=== PATIENT | female | born 1975 | race Caucasian/White ===

== ENCOUNTER 2017-12-08 17:02 | Emergency (ER) | payer OTHER ==
[2017-12-08 17:11] VITALS: BP 122/77; PULSE 82; TEMP 98.7; BMI 27.1
--- NOTE | 2017-12-08 17:27 | PDOC ---
Rapid Medical Evaluation Chief Complaint: Head/Neck problem Time Seen by Provider: 12/08/17 17:15 Medical Evaluation: Allergies Allergy/AdvReac Type Severity Reaction Status Date / Time acetaminophen Allergy Verified 12/08/17 17:08 [From Excedrin Sinus Headache] aspirin Allergy Verified 12/08/17 17:08 ibuprofen [From Motrin] Allergy Verified 12/08/17 17:08 meloxicam Allergy Verified 12/08/17 17:08 phenylephrine Allergy Verified 12/08/17 17:08 [From Excedrin Sinus Headache] Vital Signs Temp Pulse Resp BP Pulse Ox 98.7 F 82 19 122/77 100 12/08/17 17:08 12/08/17 17:08 12/08/17 17:08 12/08/17 17:08 12/08/17 17:08 12/08/17 17:16 Pt c/o: neck pain x3 days now with left arm pain, s/p cervical fusion currently in rehab now with cracking sound and pain Pt on exam:Pt in cervical collar Pt ordered for: cervical CT, uhcg Pt to proceed to the ED. C- spine precaution maintained Discharge Disposition - Diagnosis Neck pain - Referrals - Patient Instructions - Post Discharge Activity
[2017-12-08 18:14] LABS: URINE APPEARANCE CLEAR; URINE BILIRUBIN NEGATIVE (<2.0 mg/dL); URINE COLOR COLORLESS; URINE GLUCOSE (UA) NEGATIVE (NEGATIVE); URINE KETONE NEGATIVE (NEGATIVE); URINE LEUK ESTERASE NEGATIVE (NEGATIVE); URINE NITRITE NEGATIVE (NEGATIVE); URINE PROTEIN NEGATIVE (NEGATIVE); URINE UROBILINOGEN NEGATIVE mg/dL (0.2-1.0)
[2017-12-08 18:28] LABS: HCG,QUALITATIVE URINE NEGATIVE
[2017-12-08] MEDS ORDERED: oxyCODONE HCL 5 MG TABLET PO ONE (19:46)
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
--- NOTE | 2017-12-08 19:57 | PDOC ---
History of Present Illness - General Chief Complaint: Head/Neck problem Stated Complaint: PAIN Time Seen by Provider: 12/08/17 17:15 History Source: Patient Exam Limitations: No Limitations - History of Present Illness Initial Comments: 12/08/17 19:50 Patient is a 42F with history of left C6-C7 facet fracture, T3 upper endplate fracture and ligamentous injury on 11/15/17 s/p laminectomy and fusion by Dr Kan Merlos here today complaining of neck pain and left arm pain. She states that she accidentally cracked her neck today and felt increased pain down her left arm. Patient denies any new focal muscle weakness. Denies nausea, vomiting, fevers, chills. Patient is coming from rehab. Past History - Past Medical History Allergies/Adverse Reactions: Allergies Allergy/AdvReac Type Severity Reaction Status Date / Time acetaminophen Allergy Verified 12/08/17 17:08 [From Excedrin Sinus Headache] aspirin Allergy Verified 12/08/17 17:08 ibuprofen [From Motrin] Allergy Verified 12/08/17 17:08 meloxicam Allergy Verified 12/08/17 17:08 phenylephrine Allergy Verified 12/08/17 17:08 [From Excedrin Sinus Headache] Home Medications: Ambulatory Orders Docusate Sodium [Colace -] 100 mg PO TID #30 capsule MDD 3 11/20/17 Ferrous Sulfate [Feosol] 325 mg PO DAILY #30 ud MDD 1 11/20/17 Folic Acid - 1 mg PO DAILY #30 tablet MDD 1 11/20/17 oxyCODONE HCL [Roxicodone -] 5 mg PO Q4H PRN #14 tablet MDD 4 11/20/17 Anemia: Yes Asthma: Yes (as a child) COPD: No Other medical history: constipation - Suicide/Smoking/Psychosocial Hx Smoking History: Never smoked Hx Alcohol Use: No Drug/Substance Use Hx: No Substance Use Type: None Hx Substance Use Treatment: No Review of Systems - Review of Systems Comments:: 12/08/17 19:52 GENERAL/CONSTITUTIONAL: No fever or chills. No weakness. HEAD, EYES, EARS, NOSE AND THROAT: No change in vision. No sore throat. CARDIOVASCULAR: No chest pain or shortness of breath RESPIRATORY: No cough, wheezing, or hemoptysis. GASTROINTESTINAL: No nausea, vomiting, diarrhea or constipation. GENITOURINARY: No dysuria, frequency, or change in urination. MUSCULOSKELETAL: +neck, +arm pain SKIN: No rash NEUROLOGIC: No headache, vertigo, loss of consciousness, or change in strength/ sensation. ENDOCRINE: No increased thirst. No abnormal weight change HEMATOLOGIC/LYMPHATIC: No anemia, easy bleeding, or history of blood clots. ALLERGIC/IMMUNOLOGIC: No hives or skin allergy. *Physical Exam - Vital Signs Last Vital Signs Temp Pulse Resp BP Pulse Ox 98.7 F 82 19 122/77 100 12/08/17 17:08 12/08/17 17:08 12/08/17 17:08 12/08/17 17:08 12/08/17 17:08 - Physical Exam Comments: 12/08/17 19:52 GENERAL: Awake, alert, and fully oriented, in c-collar HEAD: No signs of trauma, normocephalic, atraumatic EYES: PERRLA, EOMI, sclera anicteric, conjunctiva clear ENT: Auricles normal inspection, hearing grossly normal, nares patent, oropharynx clear without exudates. Moist mucosa NECK: Normal ROM, supple, no lymphadenopathy, JVD, or masses LUNGS: No distress, speaks full sentences, clear to auscultation bilaterally HEART: Regular rate and rhythm, normal S1 and S2, no murmurs, rubs or gallops, peripheral pulses normal and equal bilaterally. EXTREMITIES: Normal inspection, Normal range of motion, no edema. No clubbing or cyanosis. NEUROLOGICAL: Cranial nerves II through XII grossly intact. Normal speech, no focal motor deficits. SKIN: Warm, Dry, normal turgor, no rashes or lesions noted. ED Treatment Course - ADDITIONAL ORDERS Additional order review: Laboratory Results 12/08/17 17:41 Urine Color Colorless Urine Appearance Clear Urine pH 6.0 D Ur Specific [place] 1.004 Urine Protein Negative Urine Glucose (UA) Negative Urine Ketones Negative Urine Blood Negative Urine Nitrite Negative Urine Bilirubin Negative Urine Urobilinogen Negative Ur Leukocyte Esterase Negative Urine HCG, Qual Negative Medical Decision Making - Medical Decision Making 12/08/17 19:57 Patient is 42F with history of C6/C7 fracture, T3 fracture here today with neck and arm pain. Vital signs normal and stable. CT scan done shows 1.5mm anterolisthesis. Dr Merlos contacted, scans reviewed. He suggests discharging patient with return precautions including increasing pain and/or weakness for further evaluation with MRI. Discharged with those return precautions. *DC/Admit/Observation/Transfer Diagnosis at time of Disposition: Neck pain - Discharge Dispostion Disposition: HOME Condition at time of disposition: Good Decision to Admit order: No - Referrals Referrals: Maliha Farooq [Primary Care Provider] - - Patient Instructions Additional Instructions: Please follow up with Dr Merlos regarding your neck injury. Please return to the ED if you have increasing pain or weakness in your arm. - Post Discharge Activity
[2017-12-08] MEDS ORDERED: oxyCODONE HCL 5 MG TABLET ONE (20:09)
== END 2017-12-08 20:20 | disposition home or self-care (01) ==
LOC: JER 17:02
DX: M54.2 Cervicalgia (principal); Z87.81 Personal history of (healed) traumatic fracture; M43.22 Fusion of spine, cervical region; Z98.1 Arthrodesis status
CPT/HCPCS: 72125-TC; 81003; 84703; 99281-25